=== PATIENT | male | born 1995 | race African-American/Black ===

== ENCOUNTER 2020-03-17 14:40 | Emergency (ER) | payer OTHER, SELFPAY ==
[2020-03-17 14:49] VITALS: BP 133/87; PULSE 80; RESP 16; TEMP 37.1; O2SAT 97
--- NOTE | 2020-03-17 14:58 | ED.URI ---
HPI - URI/Sore Throat General Chief Complaint: Upper Respiratory Infection Stated Complaint: Sharp pain in chest Source: patient Mode of arrival: ambulatory Limitations: no limitations History of Present Illness HPI Narrative: Patient is a 24-year-old male who presents complaining of reproducible midsternal chest pain x3 to 4 days. He reports he works out at the gym and was bench pressing and came down to hard. He reports pain since. Reports pain is intermittent and happens with deep breathing and moving. He reports having a history of same in the past and a diagnosis of costochondritis. He denies shortness of breath. He reports a history of Covid in October. MD elicited complaint: other (Musculoskeletal chest pain) Related Data Allergies Allergy/AdvReac Type Severity Reaction Status Date / Time Penicillins Allergy Mild Other Unverified 03/17/20 14:56 Review of Systems Review of Systems: Narrative: CONSTITUTIONAL: Denies fever, chills, or sweats. EYES: Denies visual changes, redness, or discharge. ENT: Denies rhinorrhea, congestion, sore throat, or otalgia. CARDIOVASCULAR: Denies chest pain, palpitations, or edema. Reports midsternal chest pain with movement RESPIRATORY: Denies cough or dyspnea. GASTROINTESTINAL: Denies abdominal pain, nausea, vomiting, or diarrhea. GENITOURINARY: Denies dysuria or hematuria. SKIN: Denies rash or itching. MUSCULOSKELETAL: Denies back pain, joint pain, or myalgia. NEUROLOGIC: Denies headache, numbness, dizziness, or weakness. PSYCHIATRIC: Denies anxiety or depression. [facility] Past Medical History Medical History Asthma Corneal abrasion Enlarged adenoids Surgical History Surgical History H/O Spinal surgery Family History Family History (Updated 03/17/20 @ 15:02 by DENYS Coello) Other Diabetes mellitus Social History Social History (Updated 03/17/20 @ 15:02 by DENYS Coello) Smoking status: Never smoker Alcohol intake: current Alcohol use details: Occasional Substance use: never Living arrangements: with family Gender identity (if verbalized by the patient): Male Exam Narrative: Exam Narrative: GENERAL: Well-appearing, well-nourished, and in no acute distress. HEAD: Normocephalic, atraumatic. EYES: EOMI. No redness or drainage. Conjunctiva are normal. ENT: Mucous membranes pink and moist. CHEST: No respiratory distress. Clear to auscultation. HEART: Regular rate and rhythm. No murmur appreciated. Normal peripheral pulses. MUSCULOSKELETAL: Tenderness with palpation at mid sternum. EXTREMITIES: Normal range of motion. No edema. SKIN: Warm, dry, no rash. NEURO: No focal deficits. Alert and oriented x3. Gait steady. PSYCH: Normal affect. No signs of depression or anxiety. Course Vital Signs Vital signs: Vital Signs Temperature 37.1 C 03/17/20 14:49 Pulse Rate 80 03/17/20 14:49 Respiratory Rate 16 03/17/20 14:49 Blood Pressure 133/87 03/17/20 14:49 Pulse Oximetry 97 03/17/20 14:49 Temperature 37.1 C 03/17/20 14:49 Pulse Rate 80 03/17/20 14:49 Respiratory Rate 16 03/17/20 14:49 Blood Pressure 133/87 03/17/20 14:49 Pulse Oximetry 97 03/17/20 14:49 Reviewed. Patient has been instructed to follow-up with his PCP regarding his blood pressure. MDM - URI/Sore Throat MDM Narrative Medical decision making narrative: Patient most likely has some musculoskeletal chest/rib pain after recurrence with weights. Discussed with patient that if he experiences increased chest pain or shortness of breath, that he is to go to the emergency department immediately for further evaluation. Patient is stable for discharge to home with outpatient follow-up. Differential Diagnosis Differential diagnosis: Likely upper respiratory infection, bronchitis and other (Musculoskeletal pain) Critical Care Time Critical C
== END 2020-03-17 15:10 | disposition home or self-care (01) ==
PROVIDERS: Emergency Provider Nurse Practitioner
DX: R07.89 Other chest pain (principal); J45.909 Unspecified asthma, uncomplicated
CPT/HCPCS: 99213; G0463

== ENCOUNTER 2020-05-26 13:02 | Emergency (ER) | payer OTHER, SELFPAY ==
--- NOTE | 2020-05-26 13:19 | ECG_ITS ---
Measurements Intervals [place] Rate: 64 P: 12 [place]: 163 QRS: 2 QRSD: 101 T: 2 QT: 358 QTc: 370 Interpretive Statements SINUS RHYTHM VOLTAGE CRITERIA FOR LVH MINIMAL Q WAVES- HIGH LATERAL LEADS BORDERLINE T WAVE ABNORMALITY- INFERIOR LEADS BORDERLINE ECG Electronically Signed On 05-26-2020 13:37:23 RISK ASSESSMENT CONSULTANT by Matt Hood D.O.
[2020-05-26 13:28] VITALS: BP 117/69; PULSE 70; RESP 16; TEMP 36.7; O2SAT 99
[2020-05-26] MEDS: ASPIRIN 81 MG CHEWABLE TABLET 324 MG PO (13:33)
--- NOTE | 2020-05-26 13:46 | ED.CHESTPAIN ---
HPI - Chest Pain General Chief Complaint: Chest Pain Stated Complaint: Sharp pain in middle of chest Source: patient and RN notes reviewed Mode of arrival: ambulatory Limitations: no limitations History of Present Illness HPI narrative: This patient is a 24-year-old -[place] male that presented to urgent care with soreness to his right side of his chest. According to patient he started developing these symptoms 2 days ago while working out at the gym bench pressing. Patient notes that the pain does not radiate he does not have any shortness of breath he knows that he experienced more pain with movement. Patient does not have a cardiac history, EKG sinus rhythm. The patient denies , CP, palpitation, extremity numbness, lightheadedness, dizziness, constipation, diarrhea, chills, or fever. Patient has had a recent visit for the exact same symptoms he was given Flexeril and ibuprofen his condition improved. Patient will discharge today with Flexeril and ibuprofen. Instructed to proceed to the ED if he experiences crushing chest pain, shortness of breath, nausea vomiting, dizziness, in feeling clammy or sweaty. Chest discomfort muscle skeletal Related Data Home Medications Medication Instructions Recorded Confirmed No Home Medications 05/26/20 05/26/20 Allergies Allergy/AdvReac Type Severity Reaction Status Date / Time Penicillins Allergy Mild Other Verified 05/26/20 13:35 Review of Systems Review of Systems: All systems reviewed & are unremarkable except as noted in HPI and below (10 point system review) PMFSH Past Medical History Medical History Asthma Corneal abrasion Enlarged adenoids Surgical History Surgical History H/O Spinal surgery Family History Family History Other Diabetes mellitus Social History Social History Smoking status: Never smoker Alcohol intake: current Substance use: never Gender identity (if verbalized by the patient): Male Exam Narrative: Exam Narrative: GENERAL: This is a well-nourished, well-developed patient, in no apparent distress. HEAD: normocephalic, atraumatic. EYES: PERRL. Sclera clear/white. Vision is grossly intact. EARS: External ears normal, auditory canals clear and without drainage, TMs normal without perforation. Hearing grossly intact. NOSE: External nose normal with no obvious nasal discharge, nares without redness, no rhinorrhea. THROAT: Mucous membranes moist, posterior pharynx clear. NECK: Neck supple, non-tender without lymphadenopathy, masses or thyromegaly. CARDIOVASCULAR: Regular rate and rhythm without murmurs, gallops, or rubs. RESPIRATORY: Clear to auscultation. Breath sounds equal bilaterally. No wheezes, rales, or rhonchi. GASTROINTESTINAL: Abdomen soft, non-tender, nondistended. Bowel sounds are active. No hepato-splenomegaly, or palpable masses. No guarding. SKIN: warm, intact with no suspicious lesions or rash, good texture and turgor. NEURO: awake, alert, and oriented to person, place and time. There were no obvious focal neurologic abnormalities. Steady gait EXTREMITIES: Normal range of motion. No edema. No calf tenderness. Negative Homans sign bilaterally. BACK: Nontender without deformity or crepitance. No flank tenderness. Course Course Emergency Course: EKG sinus rhythm Vital Signs Vital signs: Vital Signs Temperature 98.1 F 05/26/20 13:28 Pulse Rate 70 05/26/20 13:28 Respiratory Rate 16 05/26/20 13:28 Blood Pressure 117/69 05/26/20 13:28 Pulse Oximetry 99 05/26/20 13:28 Temperature 98.1 F 05/26/20 13:28 Pulse Rate 70 05/26/20 13:28 Respiratory Rate 16 05/26/20 13:28 Blood Pressure 117/69 05/26/20 13:28 Pulse Oximetry 99 05/26/20 13:28 Discharge Plan
== END 2020-05-26 13:48 | disposition home or self-care (01) ==
PROVIDERS: Emergency Provider Nurse Practitioner
DX: S29.011A Strain of muscle and tendon of front wall of thorax, initial encounter (principal); X58.XXXA Exposure to other specified factors, initial encounter; J45.909 Unspecified asthma, uncomplicated
CPT/HCPCS: 93005; 99213; A9270; G0463

== ENCOUNTER 2021-04-27 10:31 | Emergency (ER) | payer OTHER, SELFPAY ==
--- NOTE | ~2021-04-27 | CT_ITS ---
EXAMINATION: CT abdomen pelvis w con EXAM DATE: 04/27/2021 17:11 INDICATION: lower abdominal pain,vomiting. TECHNIQUE: Spiral CT of the abdomen and pelvis was performed following intravenous injection of 100 m L Omnipaque 350. Axial, coronal and sagittal images of the abdomen and pelvis were reviewed. The do se-length product (DLP) for this examination was 1691.63 mGy-cm. The exposure was tailored according to patient size (auto mA exposure control), and iterative reconstruction (ASIR) was used as addition al dose reduction technique. There is no prior study for comparison. FINDINGS: The liver, spleen, adrenal glands and pancreas are unremarkable. Gallbladder is unremarkab le. No biliary obstruction. Portal and splenic veins are patent. Kidneys enhance symmetrically. T here is no hydronephrosis. The prostate is unremarkable. The bladder is unremarkable. There is no retroperitoneal or pelvic lymphadenopathy. The appendix is normal. The stomach and small bowel are unremarkable. There is expected amount of c olonic stool. No free intraperitoneal gas. The heart is normal in size. There are no pericardial or pleural effusions. The lung bases are unremarkable. There are no osteoblastic or osteolytic les ions identified. IMPRESSION: No acute intra-abdominal findings. Reviewed, dictated and finalized at location A. RONMENTAL ASSOCIATE
--- NOTE | ~2021-04-27 | XR_ITS ---
EXAMINATION: XR chest 1V portable DATE: 04/27/2021 13:55 INDICATION: Cough. TECHNIQUE: A single frontal view of the chest was obtained on 2 radiographs. COMPARISON: None. FINDINGS: The chest demonstrates clear lungs without pneumonia, pleural effusion, or pneumothorax. Th e heart size is normal. IMPRESSION: 1. No acute cardiopulmonary disease. Reviewed, dictated and finalized at location A. CARRIER
[2021-04-27 10:43] VITALS: BP 152/106; PULSE 89; RESP 16; TEMP 36.2; O2SAT 99
[2021-04-27 13:04] VITALS: BP 152/108; PULSE 82; RESP 16; TEMP 36.5; O2SAT 98
--- NOTE | 2021-04-27 13:28 | ED.URI ---
HPI - URI/Sore Throat General Chief Complaint: Upper Respiratory Infection Stated Complaint: vomiting blood Time Seen by Provider: 04/27/21 13:16 Source: patient and RN notes reviewed Mode of arrival: ambulatory Limitations: no limitations History of Present Illness HPI Narrative: This is a 25 year old male who presents for evaluation of vomiting blood. Patient states he states 3 days ago he developed sinus congestion, nose bleed. He also states he has been having nausea and vomiting. He reports he is vomiting blood but he thinks it is from his nose bleeds. He has been blowing his nose and getting blood. HE denies diarrhea, melena or abdominal pain. He also denies chest pain, shortness of breath or dizziness. He denies taking any medications. He took rapid covid test yesterday that was negative. Related Data Allergies Allergy/AdvReac Type Severity Reaction Status Date / Time Penicillins Allergy Mild Other Verified 05/26/20 13:35 Review of Systems Review of Systems: All systems reviewed & are unremarkable except as noted in HPI and below PMFSH Past Medical History Medical History Asthma Corneal abrasion Enlarged adenoids Surgical History Surgical History H/O Spinal surgery Family History Family History Other Diabetes mellitus Social History Social History Smoking status: Never smoker Alcohol intake: current Alcohol use details: Occasional Substance use: never Gender identity (if verbalized by the patient): Male Exam Const: General: alert Orientation/consciousness: patient oriented x3 HENMT: Ears: external ears normal and TM's normal bilaterally General nose exam: no epistaxis Mouth: Yes Normal oral and palatal mucosa present and Yes moist mucous membranes Eyes: Pupils: Equal, round and reactive pupils present EOM: EOMs intact bilaterally Chest: Chest palpation & inspection: normal inspection of the chest Resp: Effort & Inspection: normal respiratory effort and no retractions Auscultation: clear to auscultation bilaterally Cardio: Rate: regular rate Rhythm: regular rhythm Heart sounds: no murmurs GI: GI Palp: Yes Soft to palpation, No Tenderness to palpation present (GI) and No Guarding due to palpation present (GI) Auscultation: normal bowel sounds Rectal Exam: normal sphincter tone and No hemorrhoids Other: guaic negative stool Back/Spine/Pelvis: Back: no CVA tenderness Skin: General skin exam: normal color Rashes: no rashes Neuro: General: patient oriented x3, moves all extremities and CN's II-XI intact bilaterally Psych: Mental Status: mental status grossly normal Affect: normal affect Course Reevaluation(s) Reevaluation #1: Patient reports he is now having abdominal pain after eating. He understands we will need to do CT of his abdomen Date: 04/27/21 Time: 16:53 Reevaluation #2: Patient labs and imaging unremarkable. He had no hematemesis and that was likely due to epistaxis. Date: 04/27/21 Time: 18:00 Vital Signs Vital signs: Vital Signs Temperature 97.2 F L 04/27/21 10:43 Pulse Rate 89 04/27/21 10:43 Respiratory Rate 16 04/27/21 10:43 Blood Pressure 152/106 H 04/27/21 10:43 Pulse Oximetry 99 04/27/21 10:43 Temperature 97.7 F 04/27/21 13:04 Pulse Rate 85 04/27/21 15:04 Respiratory Rate 16 04/27/21 13:04 Blood Pressure 157/103 H 04/27/21 15:04 Pulse Oximetry 98 04/27/21 13:04 MDM - URI/Sore Throat Lab Data Attestation: I reviewed the patient's lab results. Result diagrams: 04/27/21 13:36 04/27/21 13:36 Labs: Lab Results 04/27/21 04/27/21 04/27/21 Range/Units 13:36 13:36 13:36 WBC 10.5 H (4.5-10.0) K/mm3 RBC 5.04 (4.6-6.20) M/mm3 Hgb 13.9 L (14.0-18.0
[2021-04-27] MEDS: ONDANSETRON INJ 4 MG/2 ML VIAL IV PUSH (14:05)
[2021-04-27] MEDS: PANTOPRAZOLE SODIUM IV 40 MG VIAL IV PUSH (14:05)
[2021-04-27] MEDS: SODIUM CHLORIDE 0.9% IV 1,000 ML 999 ML IV CONT (14:06)
[2021-04-27 14:08] LABS: Basophils Percent Auto 0.4 % (0.2-1.2); Eosinophils Absolute Auto 0.1 K/mm3 (0-0.3); Hematocrit 41.9 % (42.0-52.0); Hemoglobin 13.9 g/dL (14.0-18.0); Immature Granulocyte Absolute 0.03 K/mm3 (0.00-0.031); Immature Granulocyte Percent A 0.3 % (0-0.5); Lymphocytes Absolute Auto 2.18 K/mm3 (0.9-3.2); Lymphocytes Percent Auto 20.8 % (18.3-44.2); Mean Corpuscular HGB Conc 33.2 g/dl (32-36); Mean Corpuscular Hemoglobin 27.6 pg (26-34); Mean Corpuscular Volume 83.1 fl (80-100); Mean Platelet Volume 9.1 fl (7.4-10.4); Monocytes Absolute Auto 0.6 K/mm3 (0.1-0.6); Monocytes Percent Auto 5.3 % (2.6-8.5); Neutrophils Absolute Auto 7.6 K/mm3 (1.3-6.7); Neutrophils Percent Auto 72.2 % (45.5-73.1); Platelet Count Result 250 k/mm3 (150-375); Red Blood Count 5.04 M/mm3 (4.6-6.20); Red Cell Distribution Width 13.5 % (11.5-14.5); White Blood Count 10.5 K/mm3 (4.5-10.0)
[2021-04-27 14:19] LABS: INR 0.9; Prothrombin Time 11.9 Seconds (11.1-14.7)
[2021-04-27 14:20] LABS: Partial Thromboplastin Time 23.3 SECONDS (22.3-36.8)
[2021-04-27 14:21] LABS: Lipase 61 U/L (23-300)
[2021-04-27 14:23] LABS: Alanine Aminotransferase 23 U/L (4-50); Albumin Level 4.8 g/dL (3.5-5.1); Alkaline Phosphatase 77 U/L (38-126); Anion Gap 8 mmol/L (8-16); Aspartate Amino Transferase 26 U/L (17-59); Bilirubin,Total 0.6 mg/dL (0.2-1.3); Blood Urea Nitrogen 10 mg/dL (9-20); Calcium 9.4 mg/dL (8.4-10.2); Carbon Dioxide 29 mmol/L (22-30); Chloride 102 mmol/L (98-107); Estimated CRCL calculation 150 ml/min; Estimated Glomerular Filt Rate > 60; Glucose 100 mg/dL (65-110); Potassium 3.8 mmol/L (3.4-5.0); Sodium 139 mmol/L (137-145)
[2021-04-27 14:25] LABS: Add Urine Microscopic? YES; Appearance Urine Clear (Clear); Bilirubin Urine Negative (Negative); Blood Urine Negative (Negative); Color Urine Yellow (Yellow); Glucose Urine UA Negative (Negative); Ketones Urine Negative (Negative); Leukocyte Esterase Ur Negative LEU/UL (Negative); Mucus Urine Rare /lpf; Nitrate Urine Negative (Negative); Protein Urine 1+ mg/dL (Negative); RBC Urine 0-2 /hpf (0-2); Specific Grav Ur 1.025 (1.001-1.035); Urobilinogen Urine Negative mg/dL (<2.0); WBC Urine 0-3 /hpf
[2021-04-27 15:00] VITALS: BP 151/82; PULSE 80
[2021-04-27 15:02] VITALS: BP 145/91; PULSE 84
[2021-04-27 15:04] VITALS: BP 157/103; PULSE 85
[2021-04-28 14:37] LABS: SARS-CoV-2 RNA PCR Negative
== END 2021-04-27 17:55 | disposition home or self-care (01) ==
PROVIDERS: Emergency Provider General Practice
DX: K29.70 Gastritis, unspecified, without bleeding (principal); R11.2 Nausea with vomiting, unspecified; Z20.822 Contact with and (suspected) exposure to COVID-19; J45.909 Unspecified asthma, uncomplicated
CPT/HCPCS: 36415; 71045; 74177; 80053; 81001; 83690; 85025; 85610; 85730; 86850; 86900; 86901; 87804; 96361; 96374; 96375; 99284; C9113; C9803; J2405; J7030; Q9967; U0003; U0005

== ENCOUNTER 2023-06-06 07:27 | Emergency (ER) | payer OTHER, MEDICAID, SELFPAY ==
--- NOTE | ~2023-06-06 | XR_ITS ---
EXAMINATION: XR hand RT min 3V DATE: 06/06/2023 09:19 INDICATION: Right hand fifth digit injury. TECHNIQUE: 3 views of right hand were obtained. COMPARISON: Right hand radiographs 02/23/2019 FINDINGS: Bone alignment is normal. No fracture. Joint spaces are normal. IMPRESSION: 1. No fracture or radiopaque foreign body. Reviewed, dictated and finalized at location A. IFIED WELLNESS PROGRAM COORDINATOR
--- NOTE | ~2023-06-06 | MR_ITS ---
EXAMINATION: MR cervical spine wo/w con DATE: 06/06/2023 10:05 INDICATION: Right hand weakness and numbness. Syrinx. TECHNIQUE: Magnetic resonance imaging (MRI) of the cervical spine was performed without and with 20 m L MultiHance intravenous contrast. COMPARISON: Cervical spine MRI 08/13/2013, CT 06/06/2023 FINDINGS: There is mild kyphosis of cervical spine. Vertebral body heights and intervertebral disc he ights are normal. There is changes of suboccipital craniectomy and resection of posterior ring of C1. There is a seroma in the surgical bed measuring 6.0 x 1.7 x 1.4 cm. The cervical spinal cord is enla rged by a syrinx extending from C1 to at least T3. The syrinx measures 13 mm in greatest diameter. Th e following disc levels are specifically discussed: C2-C3: The disc does not extend beyond the endplate margin. There is no uncovertebral joint osteoarth ritis. There is mild bilateral facet joint osteoarthritis. There is no neural foraminal stenosis. The re is no central canal stenosis. C3-C4: The disc does not extend beyond the endplate margin. There is moderate bilateral uncovertebral joint osteoarthritis. There is no facet joint osteoarthritis. There is no neural foraminal stenosis. There is no central canal stenosis. C4-C5: The disc does not extend beyond the endplate margin. There is mild right uncovertebral joint o steoarthritis. There is mild left facet joint osteoarthritis. There is no neural foraminal stenosis. There is no central canal stenosis. C5-C6: The disc does not extend beyond the endplate margin. There is moderate right and severe left u ncovertebral joint osteoarthritis. There is no facet joint osteoarthritis. There is no neural foramin al stenosis. There is no central canal stenosis. C6-C7: The disc does not extend beyond the endplate margin. There is mild bilateral uncovertebral cheko nt osteoarthritis. There is severe bilateral facet joint osteoarthritis. There is no neural foraminal stenosis. There is no central canal stenosis. C7-T1: The disc does not extend beyond the endplate margin. There is severe bilateral uncovertebral j oint osteoarthritis. There is mild bilateral facet joint osteoarthritis. There is no neural foraminal stenosis. There is no central canal stenosis. IMPRESSION: 1. Syrinx of the cervical and thoracic spinal cord, worsened from 08/13/2013. 2. Posterior fossa decompression. 3. Mild cervical spondylosis. Reviewed, dictated and finalized at location A. L PRESS SET UP OPERATOR RADIAL
--- NOTE | ~2023-06-06 | CT_ITS ---
EXAMINATION: CT cervical spine wo con DATE: 06/06/2023 09:20 INDICATION: Right hand weakness and numbness. Spinal cyst. TECHNIQUE: Computed tomography (CT) of the cervical spine was performed without intravenous contrast. Automated exposure control and iterative reconstruction technique were employed. The dose-length pro duct was 541.36 mGy-cm. COMPARISON: Cervical spine MRI 08/13/2013 FINDINGS: There is mild kyphosis of cervical spine. There are changes of suboccipital craniectomy and resection of posterior ring of C1. There is 7 degrees levocurvature of cervical spine. Vertebral bod y heights and intervertebral disc heights are normal. The following disc levels are specifically disc ussed: C2-C3: There is no uncovertebral joint osteoarthritis. There is mild bilateral facet joint osteoarthr itis. There is no neural foraminal stenosis. There is no central canal stenosis. C3-C4: There is no uncovertebral joint osteoarthritis. There is moderate bilateral facet joint osteoa rthritis. There is no neural foraminal stenosis. There is no central canal stenosis. C4-C5: There is mild right uncovertebral joint osteoarthritis. There is mild left facet joint osteoar thritis. There is no neural foraminal stenosis. There is no central canal stenosis. C5-C6: There is no uncovertebral joint osteoarthritis. There is moderate right and severe left facet joint osteoarthritis. There is mild left neural foraminal stenosis. There is no central canal stenosi s. C6-C7: There is mild bilateral uncovertebral joint osteoarthritis. There is severe bilateral facet colin int osteoarthritis. There is no neural foraminal stenosis. There is no central canal stenosis. C7-T1: There is no uncovertebral joint osteoarthritis. There is severe bilateral facet joint osteoart hritis. There is mild bilateral neural foraminal stenosis. There is no central canal stenosis. IMPRESSION: 1. Mild cervical spondylosis. Reviewed, dictated and finalized at location A. GER OF COMPENSATION
[2023-06-06 08:00] VITALS: BP 137/97; PULSE 73; RESP 16; TEMP 36.6; O2SAT 100
--- NOTE | 2023-06-06 08:36 | ED.GENADULT ---
HPI - General Adult General Chief complaint: Extremity Problem,Nontraumatic Stated complaint: R hand numbness x 1 week Time Seen by Provider: 06/06/23 07:44 History of Present Illness HPI narrative: Patient is a 27-year-old male with history of cervical cyst who presents the ER with right hand weakness. Patient reports 1 week ago his right hand went home and will became weak. He has difficulty lifting items that has been progressive throughout the week. Because he cannot feel his hand he cut his 5th digit while at work. He has been cleaning it with peroxide. No lymphangitic streaking and denies fever. Tetanus shot up-to-date. Patient denies weakness in the shoulder or elbow of the right arm. He denies weakness to the left arm or lower extremities. Reports chronic numbness and tingling to his right forearm and upper arm but the numbness in the hand is new. Reports he had surgery at 18 years old for decompression. One year later while shooting a basketball he went numb on the right arm. He has been lost to follow-up with his surgeon. Related Data Allergies Allergy/AdvReac Type Severity Reaction Status Date / Time Penicillins Allergy Mild Other Verified 06/06/23 07:33 amoxicillin Allergy Unknown Other Verified 06/06/23 07:33 Review of Systems Review of Systems: All systems reviewed & are unremarkable except as noted in HPI and below Constitutional: Constitutional: Reports no additional constitutional complaints ENT: Reports system reviewed and no additional complaints, except as documented Cardiovascular: Cardiovascular: Reports no additional cardiovascular complaints Respiratory: Respiratory: Reports no additional respiratory complaints Neurologic: Denies syncope, Denies headache(s), Reports focal weakness and Reports numbness PMFSH Past Medical History Medical History (Updated 06/06/23 @ 12:04 by Pedro Bhatia MD) Asthma Corneal abrasion Enlarged adenoids Surgical History Surgical History (Updated 04/11/22 @ 09:03 by Orville العراقي) H/O Spinal surgery Family History Family History (System 04/11/22 @ 09:03 by Orville العراقي) Other Diabetes mellitus Family history of arthritis Family history of cardiovascular disease Hypertension Social History Social History (System 04/11/22 @ 09:03 by Orville العراقي) Smoking status: Never smoker Alcohol intake: current Alcohol use details: Occasional Substance use: never Living arrangements: with family Gender identity (if verbalized by the patient): Male Exam Narrative: GENERAL: Well-appearing, well-nourished, and in no acute distress. HEAD: Normocephalic, atraumatic. ENT: Mucous membranes moist. CHEST: Clear to auscultation. No respiratory distress. HEART: Regular rate and rhythm. Normal peripheral pulses. EXTREMITIES: Right upper extremity exam with weakness the right hand where he has trouble grabbing his cellphone. He has difficulty getting his fingers 2 through 5 to full extension due to weakness however when the fingers or push to full extension he can hold them there without issue and then make a fist. The 5th digit of the right hand has a 2.5 cm laceration over the middle phalanx that is healing by secondary intention. No lymphangitic streaking. No sausage digit. Sharp touch is decreased universally in the fingers/ palm/ dorsum of the hand/forearm /proximal arm on the right side. 4/5 strength in the hand, 5/5 strength at the elbow and shoulder. SKIN: Warm, dry, no rash. See hand exam. NEURO: Alert and oriented x3. Sharp touch deficit to the right upper extremity. PSYCH: Normal mood and affect. Course Course Emergency Course: Discussed case with Dr. Nxion with Neurosurgery. She has reviewed the images and does not feel patient requires emergent decompression but would like him to have close follow-up, potentially additional imaging, and she will have to obtain outside records. Patient may also follow up with his p
[2023-06-06 08:49] LABS: Basophils Percent Auto 0.3 % (0.2-1.2); Eosinophils Absolute Auto 0.2 K/mm3 (0-0.3); Eosinophils Percent Auto 2.4 % (0-4.4); Hematocrit 44.3 % (42.0-52.0); Hemoglobin 14.5 g/dL (14.0-18.0); Immature Granulocyte Absolute 0.02 K/mm3 (0.00-0.031); Immature Granulocyte Percent A 0.3 % (0-0.5); Lymphocytes Absolute Auto 1.91 K/mm3 (0.9-3.2); Lymphocytes Percent Auto 28.3 % (18.3-44.2); Mean Corpuscular HGB Conc 32.7 g/dl (32-36); Mean Corpuscular Hemoglobin 28.2 pg (26-34); Mean Corpuscular Volume 86.2 fl (80-100); Mean Platelet Volume 9.6 fl (7.4-10.4); Monocytes Absolute Auto 0.4 K/mm3 (0.1-0.6); Monocytes Percent Auto 6.1 % (2.6-8.5); Neutrophils Absolute Auto 4.2 K/mm3 (1.3-6.7); Neutrophils Percent Auto 62.6 % (45.5-73.1); Platelet Count Result 231 k/mm3 (150-375); Red Blood Count 5.14 M/mm3 (4.6-6.20); Red Cell Distribution Width 12.6 % (11.5-14.5); White Blood Count 6.7 K/mm3 (4.5-10.0)
[2023-06-06 08:59] LABS: INR 0.9; Partial Thromboplastin Time 32.2 SECONDS (22.3-36.8); Prothrombin Time 12.7 Seconds (11.1-14.7)
[2023-06-06 09:00] LABS: Alanine Aminotransferase 20 U/L (6-50); Albumin Level 4.3 g/dL (3.5-5.1); Alkaline Phosphatase 60 U/L (38-126); Anion Gap 7 mmol/L (8-16); Aspartate Amino Transferase 30 U/L (17-59); Bilirubin,Total 0.5 mg/dL (0.2-1.3); Blood Urea Nitrogen 11 mg/dL (9-20); CRP < 0.5 mg/dL (<1.0); Calcium 9.3 mg/dL (8.4-10.2); Carbon Dioxide 28 mmol/L (22-30); Chloride 105 mmol/L (98-107); Estimated CRCL calculation 153 ml/min; Estimated Glomerular Filt Rate > 60; Glucose 104 mg/dL (65-110); Potassium 3.5 mmol/L (3.4-5.0); Sodium 140 mmol/L (137-145)
[2023-06-06 09:48] LABS: Erythrocyte Sedimentation Rate 14 mm/hr (0-20)
[2023-06-06 10:30] VITALS: BP 140/82; PULSE 68; RESP 16; O2SAT 100
[2023-06-06 12:25] VITALS: BP 138/82; PULSE 70; RESP 12; O2SAT 100
== END 2023-06-06 12:26 | disposition home or self-care (01) ==
PROVIDERS: Emergency Provider Emergency Medicine
DX: G95.89 Other specified diseases of spinal cord (principal); S61.216A Laceration without foreign body of right little finger without damage to nail, initial encounter; J45.909 Unspecified asthma, uncomplicated; M47.812 Spondylosis without myelopathy or radiculopathy, cervical region; W26.9XXA Contact with unspecified sharp object(s), initial encounter
CPT/HCPCS: 36415; 72125; 72156; 73130; 80053; 85025; 85610; 85652; 85730; 86140; 99284; A9577

== ENCOUNTER 2023-06-27 06:35 | Outpatient (CLI) | payer OTHER, SELFPAY ==
--- NOTE | ~2023-06-27 | MR_ITS ---
MRI of the brain Clinical History: Cyst Technique: Axial and sagittal T1-weighted images were acquired. These were followed by axial T2-weigh manish, diffusion weighted, gradient, and FLAIR images. COMPARISON: 01/02/2012 Findings: There is no abnormal signal in the brain parenchyma. No acute infarct, intracranial hemorrh age, or mass lesion. Ventricles and subarachnoid spaces are unremarkable. Orbits are unremarkable. There is mild bilateral ethmoid sinus disease. Remaining paranasal sinuses and mastoid air cells are clear. Major intracrani al flow voids appear intact. Sagittal midline structures are intact. Suggestion of postoperative change in the occipital region. IMPRESSION: No significant intracranial abnormality in the brain. Postoperative changes in the occipital region. Reviewed, dictated and finalized at location . RITY SITE SUPERVISOR
--- NOTE | ~2023-06-27 | MR_ITS ---
MRI of the lumbar spine Clinical History: Injury Technique: Axial T2-weighted images, and sagittal T1-weighted, T2-weighted, and T2 fat-sat images wer e acquired. Findings: There is no fracture or subluxation of the lumbar spine. Vertebral bodies maintain normal h eight and alignment. No bone marrow signal reality seen. There is mild diffuse congenital canal steno sis. At L1-L2, there is no disc bulge or herniation. There is minimal facet joint hypertrophy. No thecal s ac effacement or neural foraminal narrowing. At L2-L3, there is no disc bulge. There is moderate facet arthropathy. No thecal sac effacement or ne ural foraminal narrowing. L3-L4, there is mild disc bulge and mild to moderate facet arthropathy. No jonathan thecal sac compressi on or neural foraminal narrowing. At L4-L5, there is no disc bulge or herniation. There is mild to moderate facet arthropathy. No theca l sac effacement or neural foraminal narrowing. At L5-S1, there is no disc bulge or herniation. There is mild facet arthropathy. There is no jonathan th ecal sac compression or effacement. Neural foramina are preserved. Paravertebral soft tissues are unremarkable. Impression: Mild diffuse congenital canal stenosis with relatively low caliber spinal canal, and scattered facet joint degenerative changes. No significant disc protrusion or extrusion. No thecal sac effacement or neural foraminal narrowing. Reviewed, dictated and finalized at [facility]. EXTERMINATOR Impression: Mild diffuse congenital canal stenosis with relatively low caliber spinal canal , and scattered facet joint degenerative changes. No significant disc protrusion or extrusion. No thecal sac effacement or neural foraminal narrowing.
--- NOTE | ~2023-06-27 | MR_ITS ---
MRI of the thoracic spine Clinical History: Unspecified injury Technique: Axial T2-weighted and gradient images, and sagittal T1-weighted, T2-weighted, and STIR franc ges were acquired. Findings: There is no fracture or subluxation thoracic spine. Vertebral bodies maintain normal height and alignment. No suspicious bone marrow signal abnormality seen. No disc bulge or herniation identified at any thoracic level. No spinal canal stenosis or cord compre ssion evident. There is severe, extensive syrinx of the thoracic spine, extending from the visualized cervical cord distally through the level of T10. Paravertebral soft tissues are unremarkable. Impression: Extensive, severe syrinx of the thoracic spinal cord, extending from the visualized cervical cord dis tally through the level of T10. Reviewed, dictated and finalized at location . SURVEYOR Impression: Extensive, severe syrinx of the thoracic spinal cord, extending from the visual ized cervical cord distally through the level of T10.
== END 2023-06-27 06:36 | disposition home or self-care (01) ==
PROVIDERS: Visit Provider Neurological Surgery
DX: S14.109A Unspecified injury at unspecified level of cervical spinal cord, initial encounter (principal); G95.0 Syringomyelia and syringobulbia; M47.816 Spondylosis without myelopathy or radiculopathy, lumbar region; M47.817 Spondylosis without myelopathy or radiculopathy, lumbosacral region; M48.00 Spinal stenosis, site unspecified; Z86.69 Personal history of other diseases of the nervous system and sense organs; X58.XXXA Exposure to other specified factors, initial encounter
CPT/HCPCS: 70551; 72146; 72148

== ENCOUNTER 2023-12-11 08:02 | Outpatient (CLI) | payer OTHER, SELFPAY ==
--- NOTE | ~2023-12-11 | MR_ITS ---
EXAMINATION: MR cervical spine wo con DATE: 12/11/2023 08:39 INDICATION: Unspecified injury to unspecified level of cervical spine. Neck pain. Cord compression. TECHNIQUE: Magnetic resonance imaging (MRI) of the cervical spine was performed without intravenous c ontrast. COMPARISON: Cervical spine MRI 06/06/2023 FINDINGS: There is mild kyphosis of cervical spine. Vertebral body heights and intervertebral disc he ights are normal. There are changes of suboccipital craniectomy and resection of posterior arch of C1 . There is a syrinx involving the cervical spinal cord and visualized portion of the thoracic spinal cord with maximum diameter of 11 mm. The following disc levels are specifically discussed: C2-C3: The disc does not extend beyond the endplate margin. There is no uncovertebral joint osteoarth ritis. There is moderate right and mild left facet joint osteoarthritis. There is no neural foraminal stenosis. There is no central canal stenosis. C3-C4: The disc does not extend beyond the endplate margin. There is no uncovertebral joint osteoarth ritis. There is moderate bilateral facet joint osteoarthritis. There is mild left neural foraminal st enosis. There is no central canal stenosis. C4-C5: The disc does not extend beyond the endplate margin. There is no uncovertebral joint osteoarth ritis. There is mild right and severe left facet joint osteoarthritis. There is no neural foraminal s tenosis. There is no central canal stenosis. C5-C6: The disc does not extend beyond the endplate margin. There is mild left uncovertebral joint os teoarthritis. There is moderate bilateral facet joint osteoarthritis. There is no neural foraminal st enosis. There is no central canal stenosis. C6-C7: The disc does not extend beyond the endplate margin. There is mild left uncovertebral joint os teoarthritis. There is moderate bilateral facet joint osteoarthritis. There is no neural foraminal st enosis. There is no central canal stenosis. C7-T1: The disc does not extend beyond the endplate margin. There is no uncovertebral joint osteoarth ritis. There is severe bilateral facet joint osteoarthritis. There is mild bilateral neural foraminal stenosis. There is no central canal stenosis. IMPRESSION: 1. Stable syrinx of the cervical and thoracic spinal cord. 2. Posterior fossa decompression. 3. Mild cervical spondylosis. Reviewed, dictated and finalized at location A.
== END 2023-12-11 08:03 | disposition home or self-care (01) ==
LOC: ANHIMG 08:08
PROVIDERS: Visit Provider Neurological Surgery
DX: S34.109A Unspecified injury to unspecified level of lumbar spinal cord, initial encounter (principal); X58.XXXA Exposure to other specified factors, initial encounter; M47.892 Other spondylosis, cervical region
CPT/HCPCS: 72141

== ENCOUNTER 2024-03-05 10:11 | Outpatient (CLI) | payer OTHER, SELFPAY ==
--- NOTE | ~2024-03-05 | MR_ITS ---
EXAMINATION: MR cervical spine wo con DATE: 03/05/2024 10:38 INDICATION: Syringomyelia and syringobulbia. TECHNIQUE: Magnetic resonance imaging (MRI) of the cervical spine was performed without intravenous c ontrast. COMPARISON: Cervical spine MRI 12/11/2023 FINDINGS: There is mild kyphosis of cervical spine. Vertebral body heights and intervertebral disc he ights are normal. There are changes of suboccipital craniectomy and resection of posterior arch of C1 . There is a syrinx involving the cervical spinal cord and visualized portion of the thoracic spinal cord with maximum diameter of 11 mm. The following disc levels are specifically discussed: C2-C3: The disc does not extend beyond the endplate margin. There is no uncovertebral joint osteoarth ritis. There is moderate right and mild left facet joint osteoarthritis. There is no neural foraminal stenosis. There is no central canal stenosis. C3-C4: The disc does not extend beyond the endplate margin. There is no uncovertebral joint osteoarth ritis. There is moderate bilateral facet joint osteoarthritis. There is mild left neural foraminal st enosis. There is no central canal stenosis. C4-C5: The disc does not extend beyond the endplate margin. There is no uncovertebral joint osteoarth ritis. There is mild right and severe left facet joint osteoarthritis. There is no neural foraminal s tenosis. There is no central canal stenosis. C5-C6: The disc does not extend beyond the endplate margin. There is mild left uncovertebral joint os teoarthritis. There is moderate bilateral facet joint osteoarthritis. There is no neural foraminal st enosis. There is no central canal stenosis. C6-C7: The disc does not extend beyond the endplate margin. There is mild left uncovertebral joint os teoarthritis. There is moderate bilateral facet joint osteoarthritis. There is no neural foraminal st enosis. There is no central canal stenosis. C7-T1: The disc does not extend beyond the endplate margin. There is no uncovertebral joint osteoarth ritis. There is severe bilateral facet joint osteoarthritis. There is mild bilateral neural foraminal stenosis. There is no central canal stenosis. 1. Stable syrinx of the cervical and thoracic spinal cord. 2. Posterior fossa decompression. 3. Mild cervical spondylosis. Reviewed, dictated and finalized at location [facility]. [employer]
== END 2024-03-05 10:12 | disposition home or self-care (01) ==
LOC: MICIMG 10:12
PROVIDERS: PCP Neurological Surgery; Visit Provider Neurological Surgery
DX: G95.0 Syringomyelia and syringobulbia (principal); M47.892 Other spondylosis, cervical region
CPT/HCPCS: 72141

== ENCOUNTER 2024-03-14 08:21 | Outpatient (CLI) | payer OTHER, SELFPAY ==
--- NOTE | ~2024-03-14 | MR_ITS ---
EXAMINATION: MR brain/brain stem wo con DATE: 03/14/2024 08:52 INDICATION: Compression of brain. Chiari malformation type I. TECHNIQUE: Magnetic resonance imaging (MRI) of the brain and brainstem was performed without intraven ous contrast. COMPARISON: Brain MRI 06/27/23 FINDINGS: Dolichocephaly is noted. There is no intracranial hemorrhage, acute infarction, or abnormal intracranial mass lesion. The ventricles are normal in size. There is mucosal thickening in the para nasal sinuses. The orbits are normal. The mastoid air cells are normal. Partially visualized is a syr inx in cervical spinal cord. There are changes of suboccipital craniectomy. There are changes of rese ction of the posterior arch of C1. IMPRESSION: 1. Syrinx in cervical spinal cord again seen. Reviewed, dictated and finalized at location A. F [employer]IC[employer]
== END 2024-03-14 08:22 | disposition home or self-care (01) ==
LOC: GOSHIMG 08:22
PROVIDERS: PCP Neurological Surgery; Visit Provider Neurological Surgery
DX: G93.5 Compression of brain (principal); G95.89 Other specified diseases of spinal cord; Z86.69 Personal history of other diseases of the nervous system and sense organs
CPT/HCPCS: 70551

== ENCOUNTER 2024-05-18 09:29 | Emergency (ER) | payer OTHER, SELFPAY ==
--- NOTE | 2024-05-18 09:45 | ED_ITS ---
HPI - Neck Pain/Injury General Stated Complaint: neck pain, work inj Time Seen by Provider: 05/18/24 10:10 Source: patient and RN notes reviewed Mode of arrival: ambulatory Limitations: no limitations History of Present Illness HPI Narrative: 28-year-old male presents with concern for neck pain. Reports he fell yesterday on the ice falling forward. Reports he had neck pain immediately. Reports this happened at work. He reports since then he has had more neck stiffness and neck pain. He denies any change in motor function, range of motion. Reports he has chronic loss of feeling on his left side from previous neck surgery. MD complaint: neck pain Related Data Home Medications ?Medication ?Instructions ?Recorded ?Confirmed ?Last Taken ?Type No Home Medications 01/10/24 05/18/24 Unknown History Allergies Allergy/AdvReac Type Severity Reaction Status Date / Time amoxicillin Allergy Unknown Other Verified 05/18/24 09:59 Review of Systems Review of Systems: CONSTITUTIONAL: Denies malaise, chills, sweats, or fever. CARDIOVASCULAR: Denies chest pain, palpitations, or edema. RESPIRATORY: Denies cough or dyspnea. SKIN: Denies rash or itching. MUSCULOSKELETAL: Reports neck pain, foot pain NEUROLOGIC: Denies weakness or headache. All systems reviewed & are unremarkable except as noted in HPI and below PMFSH Past Medical History Medical History Asthma Enlarged adenoids Corneal abrasion Surgical History Surgical History H/O Spinal surgery Family History Family History Mother Hypertension Depression Heart disease Thyroid disorder Sibling Diabetes mellitus Thyroid disorder Other Family history of arthritis Family history of cardiovascular disease Social History Social History Smoking status: Never smoker Alcohol intake: former Substance use: current Substance use type: marijuana Do You Feel Safe in your Home?: Yes Lack of Transportation: No Lack of Food: Never True Current Housing: I Have Housing Concerned About Future Housing: No Difficulty Paying Gas/Electric Bills: No Difficulty Paying for Meds: No Currently Unemployed: No Education: High School Diploma/GED Difficulty w/ Childcare or Family Care: No Living arrangements: with family Gender identity (if verbalized by the patient): Male Comments At time of signature, agree with nursing past medical, surgical, social and family history. There is no relevant family history pertinent to the presenting complaint Exam Narrative: GENERAL: Well-appearing, well-nourished, and in no acute distress. HEAD: Normocephalic, atraumatic. EYES: PERRLA and EOMI. NECK: Supple. CHEST: Clear to auscultation. No respiratory distress. HEART: Regular rate and rhythm. Distal pulses palpable and equal, cap refill <3 seconds MUSCULOSKELETAL: Normal range of motion and strength in all extremities. No midline neck tenderness to palpation. No paraspinal tenderness. Transfers from sitting to standing. SKIN: Warm, dry, no rash. No ecchymosis, erythema, open wounds NEURO: No focal deficits. Alert and oriented x3. PSYCH: Normal mood and affect Course Course Emergency Course: Patient is aware of, understands and agrees to be transferred to the emergency room. Patient agrees to proceed directly to the emergency department. Portions of this record may have been created with voice recognition software Level of Care: Express Care Visit Vital Signs Vital signs: Reviewed. Transfer Transfered to: [facility] Transportation: Other (Private vehicle) Transfer rationale: Neck pain Accepting physician: Cammy Critical Care Time Critical Care Time Critical Care Time: No Discharge Plan Discharge Patient Language: Maltese Prescriptions: No Action No Home Medications Time of Disposition: 10:24
[2024-05-18 10:00] VITALS: BP 150/91; PULSE 85; RESP 16; TEMP 36.3; O2SAT 100
== END 2024-05-18 10:25 | disposition short-term general hospital (02) ==
LOC: EXPGOSH 09:51
PROVIDERS: Emergency Provider Nurse Practitioner
DX: M54.2 Cervicalgia (principal); W00.9XXA Unspecified fall due to ice and snow, initial encounter; Y99.0 Civilian activity done for income or pay; J45.909 Unspecified asthma, uncomplicated; F12.90 Cannabis use, unspecified, uncomplicated
CPT/HCPCS: 99212; G0463